=== PATIENT | female | born 1995 | race Caucasian/White ===

== ENCOUNTER 2022-06-13 13:35 | Emergency (ER) | payer OTHER ==
[~2022-06-13] VITALS: Ht 170.2 cm; Wt 86.2 kg
[2022-06-13] MEDS ORDERED: VENLAFAXINE H37.5 M1 PO (14:43)
[2022-06-13] MEDS ORDERED: CIPROFLOXACIN500 MG PO (14:43)
[2022-06-13] MEDS ORDERED: VALTREX500 MG PO (14:44)
[2022-06-13] MEDS ORDERED: CONCERTA18 MG PO (14:44)
== END 2022-06-13 17:43 | disposition home or self-care (01) ==
LOC: ED 13:35
DX: R31.9 Hematuria, unspecified (principal); Z79.899 Other long term (current) drug therapy
CPT/HCPCS: 36415; 80053; 81001; 83605; 84703; 85025; 99284; J7030

== ENCOUNTER 2023-02-28 18:01 | Emergency (ER) | payer OTHER ==
[~2023-02-28] VITALS: Ht 170.2 cm; Wt 90.9 kg
--- OUTSIDE RECORDS SUMMARY | ~2023-02-28 | XMS | Continuity of Care Document ---
Demographics + + + | Address | [address] | | | [place] [address] | + + + | Preferred Language | Unknown | + + + | Marital Status | Never | + + + | Church Affiliation | Unknown | + + + | Race | White | + + + | Ethnic Group | Not or | + + + Author + + + | Author | [facility] | + + + | Organization | [facility] | + + + | Address | [address] | | | [place] [address] | + + + | Phone | | + + + Care Team Providers + + + + | Care Long Winder Tender Name | Role | Phone | + + + + Unavailable | Unavailable | + + + + Unavailable | Unavailable | + + + + Allergies No information. Encounters No information. Functional Status No information. Immunizations No information. Medications + + + + | date | description | facility | + + + + | 2022-06-13 00:00 | VALACYCLOVIR HCL | [facility] | + + + + | 2022-06-13 00:00 | METHYLPHENIDATE HCL | [facility] | + + + + | 2022-06-13 00:00 | CIPROFLOXACIN HCL | [facility] | + + + + | 2022-06-13 00:00 | VENLAFAXINE HCL | [facility] | + + + + Problems + + + + | date | description | facility | + + + + | 2022-06-13 00:00 | Hematuria | [facility] | + + + + Procedures No information. Results/Labs +--------+--------+ +---------+--------+---------+ | test | date | facility | value | unit | notes | +--------+--------+ +---------+--------+---------+ + + | Result panel 1 | + + + + + + + + + | | 2022-06-13 | [facility] | YELLOW | (missing) | (missing) | | (unavailable | [facility] | | | + + + + + + + + + | Result panel 2 | + + + + + +---------+ + + | | 2022-06-13 | [facility] | CLEAR | (missing) | (missing) | | (unavailable | [facility]21:08 [facility] | | | | + + + +---------+ + + + + | Result panel 3 | + + + + + + + + + | | 2022-06-13 | [facility] | NEGATIVE | (missing) | (missing) | | (unavailable | [facility]:08 [facility] | | | | + + + + + + + + + | Result panel 4 | + + + + + + + + + | | 2022-06-13 | [facility] | NEGATIVE | (missing) | (missing) | | (unavailable | 14::08 [facility] | | | | + + + + + + + + + | Result panel 5 | + + + + + + + + + | | 2022-06-13 | [facility] | NEGATIVE | (missing) | (missing) | | (unavailable | [facility]21:08 [facility] | | | + + + + + + + + + | Result panel 6 | + + + + + +---------+ + + | | 2022-06-13 | [facility] | 1.025 | (missing) | (missing) | | (unavailable | [facility]21:08 [facility] | | | | + + + +---------+ + + + + | Result panel 7 | + + + + + +---------+ + + | | 2022-06-13 | [facility] | LARGE | (missing) | (missing) | | (unavailable | [facility]:08 [facility] | | | | + + + +---------+ + + + + | Result panel 8 | + + + + + +-------+ + + | | 2022-06-13 | [facility] | 7.5 | (missing) | (missing) | | (unavailable | [facility]21:08 [facility] | | | + + + +-------+ + + + + | Result panel 9 | + + + + + + + + + | | 2022-06-13 | [facility] | NEGATIVE | (missing) | (missing) | | (unavailable | [facility]21:08 [facility] | | | + + + + + + + + + | Result panel 10 | + + + + + +-------+ + + | | 2022-06-13 | [facility] | 1.0 | (missing) | (missing) | | (unavailable | [facility]21:08 [facility] | | | | + + + +-------+ + + + + | Result panel 11 | + + + + + + + + + | | 2022-06-13 | [facility] | NEGATIVE | (missing) | (missing) | | (unavailable | [facility]21:08 [facility] | | | + + + + + + + + + | Result panel 12 | + + + + + +---------+ + + | | 2022-06-13 | [facility] | TRACE | (missing) | (missing) | | (unavailable | [facility]21:08 [facility] | | | | + + + +---------+ + + + + | Result panel 13 | + + + + + +---------+ + + | | 2022-06-13 | [facility] | 21-40 | (missing) | (missing) | | (unavailable | [facility]21:08 [facility] | | | | + + + +---------+ + + + + | Result panel 14 | + + + + + +-------+ + + | | 2022-06-13 | [facility] | 2-3 | (missing) | (missing) | | (unavailable | [facility]21:08 [facility] | | | | + + + +-------+ + + + + | Result panel 15 | + + + + + + + + + | | 2022-06-13 | [facility] | SQUAMOUS 3+ | (missing) | (missing) | | (unavailable | [facility]21:08 [facility] | | | + + + + + + + + + | Result panel 16 | + + + + + +--------+ + + | | 2022-06-13 | [facility] | RARE | (missing) | (missing) | | (unavailable | [facility]21:08 [facility] | | | + + + +--------+ + + + + | Result panel 17 | + + + + + +------+ + + | | 2022-06-13 | [facility] | No | (missing) | (missing) | | (unavailable | [facility]21:08 [facility] | | | + + + +------+ + + + + | Result panel 18 | + + + + + + + + + | | 2022-06-13 | [facility] | CLEAN CATCH | (missing) | (missing) | | (unavailable | [facility]21:08 [facility] | | | + + + + + + + + + | Result panel 19 | + + + + + + + + + | | 2022-06-13 | [facility] | NEGATIVE | (missing) | (missing) | | (unavailable | 14[facility]30:08 [facility] | | | + + + + + + + + + | Result panel 20 | + + + + + +--------+ + + | | 2022-06-13 | [facility] | 11.9 | (missing) | (missing) | | (unavailable | [facility]15:08 [facility] | | | + + + +--------+ + + + + | Result panel 21 | + + + + + +--------+ + + | | 2022-06-13 | [facility] | 79.6 | (missing) | (missing) | | (unavailable | [facility]15:08 [facility] | | | + + + +--------+ + + + + | Result panel 22 | + + + + + +--------+ + + | | 2022-06-13 | [facility] | 14.7 | (missing) | (missing) | | (unavailable | [facility]:08 [facility] | | | + + + +--------+ + + + + | Result panel 23 | + + + + + +-------+ + + | | 2022-06-13 | [facility] | 4.4 | (missing) | (missing) | | (unavailable | [facility]08 [facility] | | | + + + +-------+ + + + + | Result panel 24 | + + + + + +-------+ + + | | 2022-06-13 | [facility] | 0.9 | (missing) | (missing) | | (unavailable | [facility]08 [facility] | | | + + + +-------+ + + + + | Result panel 25 | + + + + + +-------+ + + | | 2022-06-13 | [facility] | 0.4 | (missing) | (missing) | | (unavailable | [facility]:08 [facility] | | | + + + +-------+ + + + + | Result panel 26 | + + + + + +--------+ + + | | 2022-06-13 | [facility] | 4.79 | (missing) | (missing) | | (unavailable | [facility]08 [facility] | | | + + + +--------+ + + + + | Result panel 27 | + + + + + +--------+ + + | | 2022-06-13 | [facility] | 13.8 | (missing) | (missing) | | (unavailable | [facility]:08 [facility] | | | + + + +--------+ + + + + | Result panel 28 | + + + + + +-------+---------+ + | | 2022-06-13 | [facility] | 101 | mg/dL | (missing) | | (unavailable | [facility]15:08 [facility] | | | + + + +-------+---------+ + + + | Result panel 29 | + + + + + +-----+---------+ + | | 2022-06-13 | [facility] | 5 | mg/dL | (missing) | | (unavailable | [facility]15:08 [facility] | | | + + + +-----+---------+ + + + | Result panel 30 | + + + + + +--------+---------+ + | | 2022-06-13 | [facility] | 0.83 | mg/dL | (missing) | | (unavailable | [facility]:08 [facility] | | | + + + +--------+---------+ + + + | Result panel 31 | + + + + + +-------+ + + | | 2022-06-13 | [facility] | 100 | (missing) | (missing) | | (unavailable | [facility]08 [facility] | | | + + + +-------+ + + + + | Result panel 32 | + + + + + +--------+ + + | | 2022-06-13 | [facility] | 6.02 | (missing) | (missing) | | (unavailable | [facility] | | | + + + +--------+ + + + + | Result panel 33 | + + + + + +-------+ + + | | 2022-06-13 | [facility] | 138 | (missing) | (missing) | | (unavailable | [facility]:08 [facility] | | | + + + +-------+ + + + + | Result panel 34 | + + + + + +-------+ + + | | 2022-06-13 | [facility] | 4.2 | (missing) | (missing) | | (unavailable | [facility]08 [facility] | | | + + + +-------+ + + + + | Result panel 35 | + + + + + +--------+ + + | | 2022-06-13 | [facility] | 42.6 | (missing) | (missing) | | (unavailable | [facility]15:08 [facility] | | | + + + +--------+ + + + + | Result panel 36 | + + + + + +-------+ + + | | 2022-06-13 | [facility] | 104 | (missing) | (missing) | | (unavailable | [facility]:08 [facility] | | | + + + +-------+ + + + + | Result panel 37 | + + + + + +------+ + + | | 2022-06-13 | [facility] | 25 | (missing) | (missing) | | (unavailable | [facility]08 [facility] | | | + + + +------+ + + + + | Result panel 38 | + + + + + +--------+ + + | | 2022-06-13 | [facility] | 13.2 | (missing) | (missing) | | (unavailable | [facility]08 [facility] | | | + + + +--------+ + + + + | Result panel 39 | + + + + + +-------+---------+ + | | 2022-06-13 | [facility] | 9.1 | mg/dL | (missing) | | (unavailable | [facility]:08 [facility] | | | + + + +-------+---------+ + + + | Result panel 40 | + + + + + +-------+ + + | | 2022-06-13 | [facility] | 7.6 | (missing) | (missing) | | (unavailable | [facility] | | | + + + +-------+ + + + + | Result panel 41 | + + + + + +-------+ + + | | 2022-06-13 | [facility] | 3.9 | (missing) | (missing) | | (unavailable | [facility] | | | + + + +-------+ + + + + | Result panel 42 | + + + + + +-------+ + + | | 2022-06-13 | [facility] | 3.7 | (missing) | (missing) | | (unavailable | [facility]08 [facility] | | | + + + +-------+ + + + + | Result panel 43 | + + + + + +--------+ + + | | 2022-06-13 | [facility] | 1.05 | (missing) | (missing) | | (unavailable | [facility]:08 [facility] | | | + + + +--------+ + + + + | Result panel 44 | + + + + + +-------+ + + | | 2022-06-13 | [facility] | 0.4 | (missing) | (missing) | | (unavailable | [facility] | | | + + + +-------+ + + + + | Result panel 45 | + + + + + +------+ + + | | 2022-06-13 | [facility] | 20 | (missing) | (missing) | | (unavailable | [facility]08 [facility] | | | + + + +------+ + + + + | Result panel 46 | + + + + + +--------+ + + | | 2022-06-13 | [facility] | 89.0 | (missing) | (missing) | | (unavailable | [facility] | | | + + + +--------+ + + + + | Result panel 47 | + + + + + +------+ + + | | 2022-06-13 | [facility] | 37 | (missing) | (missing) | | (unavailable | [facility] | | | + + + +------+ + + + + | Result panel 48 | + + + + + +------+ + + | | 2022-06-13 | [facility] | 84 | (missing) | (missing) | | (unavailable | [facility]:08 [facility] | | | + + + +------+ + + + + | Result panel 49 | + + + + + +-------+ + + | | 2022-06-13 | [facility] | 1.3 | (missing) | (missing) | | (unavailable | [facility] | | | + + + +-------+ + + + + | Result panel 50 | + + + + + +--------+ + + | | 2022-06-13 | [facility] | 28.8 | (missing) | (missing) | | (unavailable | [facility] | | | + + + +--------+ + + + + | Result panel 51 | + + + + + +--------+ + + | | 2022-06-13 | [facility] | 32.3 | (missing) | (missing) | | (unavailable | [facility]08 [facility] | | | + + + +--------+ + + + + | Result panel 52 | + + + + + +--------+ + + | | 2022-06-13 | [facility] | 13.3 | (missing) | (missing) | | (unavailable | [facility] | | | + + + +--------+ + + + + | Result panel 53 | + + + + + +-------+ + + | | 2022-06-13 | [facility] | 370 | (missing) | (missing) | | (unavailable | [facility]08 [facility] | | | + + + +-------+ + + Social History + + + + | date | description | facility | + + + + | 2022-06-13 00:00 | Unknown if ever smoked | [facility] | + + + + Vital Signs + + + +---------+ | date | measurement | value | units | + + + +---------+ | 2022-06-13 00:00 | BMI | 29.8 | kg/m2 | + + + +---------+ | 2022-06-13 00:00 | BP_diastolic | 77 | mmHg | + + + +---------+ | 2022-06-13 00:00 | BP_systolic | 111 | mmHg | + + + +---------+ | 2022-06-13 00:00 | heart_rate | 95 | /min | + + + +---------+ | 2022-06-13 00:00 | height_metric | 170.18 | cm | + + + +---------+ | 2022-06-13 00:00 | height_standard | 67 | in | + + + +---------+ | 2022-06-13 00:00 | o2_saturation | 99 | % | + + + +---------+ | 2022-06-13 00:00 | respiration_rate | 16 | /min | + + + +---------+ | 2022-06-13 00:00 | temperature_metric | 36.83 | C | | | | | | + + + +---------+ | 2022-06-13 00:00 | | 98.3 | F | | | temperature_standar | | | | | d | | | + + + +---------+ | 2022-06-13 00:00 | weight_metric | 86.18 | kg | + + + +---------+ | 2022-06-13 00:00 | weight_standard | 189.99 | lb | + + + +---------+ | 2022-06-13 00:00 | weight_standard | 190 | lb | + + + +---------+"
--- OUTSIDE RECORDS SUMMARY | ~2023-02-28 | XMS | Continuity of Care Document ---
Demographics + + + | Address | [address] | | | [place] [address] | + + + | Preferred Language | Unknown | + + + | Marital Status | Never | + + + | Gnosticist Affiliation | Unknown | + + + | Race | White | + + + | Ethnic Group | Not or | + + + Author + + + | Author | Page | + + + | Organization | Page | + + + | Address | [address] | | | [place] [address] | + + + | Phone | | + + + Care Team Providers + + + + | Care Light Armored Vehicle Officer Name | Role | Phone | + + + + Unavailable | Unavailable | + + + + Unavailable | Unavailable | + + + + Allergies No information. Encounters No information. Functional Status No information. Immunizations No information. Medications + + + + | date | description | facility | + + + + | 2022-06-13 00:00 | VALACYCLOVIR HCL | [facility] | + + + + | 2022-06-13 00:00 | METHYLPHENIDATE HCL | [facility] | + + + + | 2022-06-13 00:00 | CIPROFLOXACIN HCL | [facility] | + + + + | 2022-06-13 00:00 | VENLAFAXINE HCL | [facility] | + + + + Problems + + + + | date | description | facility | + + + + | 2022-06-13 00:00 | Hematuria | [facility] | + + + + Procedures No [...] | Unknown if ever smoked | [facility] | + + + + Vital Signs [...]
[~2023-02-28 18:01] MED LIST: CIPROFLOXACIN500 MG PO; CONCERTA18 MG PO; VALTREX500 MG PO; VENLAFAXINE H37.5 M1 PO
[2023-02-28] MEDS ORDERED: ATOMOXETINE HCL80 MG PO (18:41)
[2023-02-28 18:45] LABS: BASOPHILS 0.7 % (0-2); EOSINOPHILS 1.8 % (0-6); HEMATOCRIT 40.2 % (35.0-50.0); HEMOGLOBIN 13.3 g/dL (12.0-18.0); LYMPHOCYTES 19.4 % (24-44); MCH 29.7 (27-36); MCHC 32.9 g/dl (30-36); MCV 90.1 fl (81-99); MONOCYTES 7.3 % (0-12); NEUTROPHILS 70.8 % (39-80); PLATELET COUNT 364 K/uL (140-440); RBC 4.47 M/ul (4.3-5.7); RDW 13.9 (10.5-15.0)
[2023-02-28 19:00] LABS: ALBUMIN 3.9 g/dL (3.4-5.0); ALBUMIN/GLOBULIN RATIO 1.03 (1.1-2.4); ANION GAP 14.8 (7-21); BILIRUBIN, TOTAL 0.2 ng/dL (0.2-1.0); BUN/CREATININE RATIO 8.98 (6.0-28.6); CALCIUM 9.2 mg/dL (8.5-10.1); CREATININE, SERUM 0.89 mg/dL (0.55-1.02); MAGNESIUM 1.7 mg/dL (1.8-2.4); POTASSIUM 3.8 mmol/L (3.5-5.1); PROTEIN, TOTAL 7.7 g/dL (6.4-8.2)
[2023-02-28 19:31] LABS: BILIRUBIN, URINE NEGATIVE (negative); BLOOD/HGB, URINE NEGATIVE (Negative); KETONE, URINE NEGATIVE (Negative); LEUK ESTERASE, URINE NEGATIVE (negative); NITRITE, URINE NEGATIVE (negative)
[2023-02-28] MEDS ORDERED: ONDANSETRON ODT8 MG PO (20:53)
[2023-02-28] MEDS ORDERED: HYDROCODON-ACE1 EA10 PO (20:53)
[2023-02-28 21:40] VITALS: BP 105/78
== END 2023-02-28 21:40 | disposition home or self-care (01) ==
LOC: ED 18:01
PROVIDERS: Emergency Medicine
DX: K80.70 Calculus of gallbladder and bile duct without cholecystitis without obstruction (principal)
CPT/HCPCS: 36415; 76705; 80053; 81003; 83690; 83735; 84703; 85025; 96361; 96374; 96375; 99284-25; J1885; J2405; J7030

== ENCOUNTER 2024-12-20 17:16 | Emergency (ER) | payer OTHER ==
[~2024-12-20] VITALS: Ht 170.2 cm; Wt 98.6 kg
[~2024-12-20 17:16] MED LIST changes: +ATOMOXETINE HCL80 MG PO; +HYDROCODON-ACE1 EA10 PO; +ONDANSETRON ODT8 MG PO
[2024-12-20] MEDS ORDERED: METHYLPHENIDATE36 MG PO (19:24)
[2024-12-20] MEDS ORDERED: ALBUTEROL0.63 MG/3 INH (19:25)
[2024-12-20] MEDS ORDERED: TRAMADOL HCL50 MG PO (20:40)
[2024-12-20] MEDS ORDERED: TRAMADOL HCL 50 MG HOME.PACK PO ONE (20:45)
[2024-12-20 20:58] VITALS: BP 123/82
== END 2024-12-20 20:58 | disposition home or self-care (01) ==
LOC: ED 17:16
DX: S46.912A Strain of unspecified muscle, fascia and tendon at shoulder and upper arm level, left arm, initial encounter (principal); S80.01XA Contusion of right knee, initial encounter; Z79.899 Other long term (current) drug therapy; V03.00XA Pedestrian on foot injured in collision with car, pick-up truck or van in nontraffic accident, initial encounter
CPT/HCPCS: 73060; 73560; A9270

== ENCOUNTER 2025-04-04 04:08 | Observation (INO) | payer OTHER ==
[~2025-04-04] VITALS: Ht 170.2 cm; Wt 98.1 kg
[2025-04-04] VITALS (12 sets, daily range): BP systolic 99–135; BP diastolic 58–90
[~2025-04-04 04:08] MED LIST changes: +ALBUTEROL0.63 MG/3 INH; +METHYLPHENIDATE36 MG PO; +TRAMADOL HCL50 MG PO; -VENLAFAXINE H37.5 M1 PO; +VENLAFAXINE HCL75 M1 PO
[2025-04-04 04:37] LABS: BASOPHILS 0.6 % (0.1-1.2); EOSINOPHILS 1.6 % (0.7-5.8); LYMPHOCYTES 39.0 % (19.3-51.7); MCH 28.9 PG (25.6-32.2); MCHC 33.6 g/dL (32.2-35.5); MCV 86.2 fL (79.4-94.8); MONOCYTES 7.8 % (4.7-12.5); NEUTROPHILS 50.7 % (34.0-71.1); RBC 4.91 M/uL (3.93-5.22)
[2025-04-04] MEDS ORDERED: HYDROmorphone HCL 1 MG/ML SYR IV PRN ×3 (04:45→11:30)
[2025-04-04] MEDS ORDERED: SODIUM CHLORIDE 0.9% 1,000 ML IV SCH (04:45)
[2025-04-04 04:48] LABS: ALT (SGPT) 24.0 U/L (14-59); AST (SGOT) 15.0 U/L (15-37); GLOMERULAR FILTRATION RATE,EST 99.0 mL/min (>60); PROTEIN, TOTAL 7.6 g/dL (6.4-8.2); UREA NITROGEN 10.0 mg/dL (7-18)
[2025-04-04] MEDS ORDERED: FAMOTIDINE 20 MG/ 2 ML VIAL IV ONE (05:45)
[2025-04-04] MEDS ORDERED: CEFAZOLIN SODIUM 2 GM in SODIUM CHLORIDE 0.9% 100 ML IV ONE (05:45)
--- NOTE | 2025-04-04 06:50 | NUR ---
RECEIVED REPORT FROM LUCIUS BARAJAS RN. PT ADMITTED TO ROOM 112 VIA GURNEY. PT ABLE TO AMBULATE TO HOSPITAL BED IND. PT REPORTS SOME NAUSEA AND EPIGASTRIC PAIN 7-01/19. PT MEDICATED W/ PRN IV DILAUDID. PT IS NPO. ORAL SWABS AND CHAPSTICK PROVIDED FOR COMFORT. CALL LIGHT WITHIN REACH.
[2025-04-04] MEDS ORDERED: LACTATED RINGER'S 1,000 ML IV SCH ×2 (07:00→11:30)
--- NOTE | 2025-04-04 07:46 | NUR ---
got pt ua sample, dated, timed and initialed it and sent to lab, 1839.
[2025-04-04 07:47] LABS: BLOOD/HGB, URINE NEGATIVE (Negative); KETONE, URINE TRACE (Negative); LEUK ESTERASE, URINE NEGATIVE (negative); NITRITE, URINE NEGATIVE (negative)
--- NOTE | 2025-04-04 07:54 | NUR ---
VERBAL REPORT RECIEVED BY FABIOLA COOK. URINE COLLECTED BY HOLLIE CORTES. PATIENT COMPLAINS OF NAUSEA AT THIS TIME, PRN ZOFRAN GIVEN (SEE EMAR). IVF RUNNING AT THIS TIME. PATIENT COMPLAINS OF 7/10 MID ABD PAIN.
--- NOTE | 2025-04-04 09:04 | NUR ---
Patient crying, she reports 9/10 abdominal pain. Admin dilaudid 0.6mg iv at this time. Encouraged patient to rest.
--- NOTE | 2025-04-04 09:57 | NUR ---
INTO SEE PATIENT. PERSONAL HEALTH INFORMATION REVIEWED. PATIENT LIVES IN A BASEMENT APARTMENT BELOW PARENTS. STEPS INTO THE APT. DENIES DIFFCULTY DOING THEM. PATIENT DOES NOT USE DME. DRIVES. MOTHER TO DRIVE HER HOME WHEN MEDICALLY CLEARED FOR D/C. DID TALK TO HER ABOUT SNAP BENEFITS AND REACHING OUT TO [facility] FOR ELECTRICAL AND FOOD ASSISTANCE. NO QUESTIONS AT THIS TIME.
--- NOTE | 2025-04-04 10:54 | NUR ---
Patient reports 7/10 abd pain. Admin dilaudid 0.6mg iv at this time.
[2025-04-04] MEDS ORDERED: ADDERALL 10 MG10 MG PO (11:04)
--- NOTE | 2025-04-04 11:05 | NUR ---
medications reconciled with patient
[2025-04-04] MEDS ORDERED: FAMOTIDINE 20 MG/ 2 ML VIAL IV SCH (11:24)
[2025-04-04] MEDS ORDERED: KETOROLAC TROMETHAMINE 30 MG/ML VIAL IV PRN (11:30)
--- NOTE | 2025-04-04 11:32 | NUR ---
PATIENT RESTING IN BED AWAKE ALERT AND ORIENTED. PATIENT UPDATED REGARDING POC, PLAN SCHEDULE SURGERY THIS AFTERNOON. CALL LIGHT IN REACH.
[2025-04-04] MEDS ORDERED: ROCURONIUM BROMIDE 50 MG/5 ML SYR ONE ×2 (12:16→17:14)
[2025-04-04] MEDS ORDERED: LIDOCAINE HCL 2% 5 ML SDV ONE (12:16)
[2025-04-04] MEDS ORDERED: LIDOCAINE HCL 1% 30 ML SDV ONE (12:16)
[2025-04-04] MEDS ORDERED: SEVOFLURANE 250 ML BTL INH ONE (12:20)
--- NOTE | 2025-04-04 12:26 | NUR ---
PATIENT COMPLAINS OF 7/10 MID ABD PAIN, PRN PAIN MEDICATION GIVEN (SEE EMAR). PATIENT DENIES ANY NEEDS AT THIS TIME. CALL LIGHT IN REACH.
[2025-04-04] MEDS ORDERED: MIDAZOLAM HCL 2 MG/2 ML VIAL ONE (13:30)
[2025-04-04] MEDS ORDERED: fentaNYL citrate 100 MCG/2 ML VIAL ONE ×2 (13:31→16:45)
--- NOTE | 2025-04-04 13:40 | NUR ---
PATIENT RATES MID ABD PAIN A 2/10 AT THIS TIME. PATIENT STATES "I AM VERY HAPPY WITH MY PAIN BEING A 2/10." PATIENT DENIES ANY NEEDS AT THIS TIME. CALL LIGHT IN REACH.
[2025-04-04] MEDS ORDERED: CEFAZOLIN SODIUM 2 GM in SODIUM CHLORIDE 0.9% 100 ML IV SCH ×2 (14:00)
--- NOTE | 2025-04-04 15:28 | NUR ---
Patient left unit with surgery nurse.
[2025-04-04] MEDS ORDERED: BUPIVACAINE HCL 0.25% 50 ML MDV ONE (15:42)
[2025-04-04] MEDS ORDERED: SODIUM CHLORIDE 0.9% 60 ML IV ONE (15:43)
[2025-04-04] MEDS ORDERED: NALOXONE HCL 0.4 MG SYR IV PRN (16:00)
[2025-04-04] MEDS ORDERED: fentaNYL citrate 50 MCG/ML SDV IV PRN (16:00)
[2025-04-04] MEDS ORDERED: IBLOOD GLUCOSE TEST STRIP 1 EA TEST VI PRN (16:00)
--- NOTE | 2025-04-04 16:11 | NUR ---
UR CLINICAL REVIEW: [facility] REVIEW MEETS OBS FOR CHOLECYSTITIS WITH NEED FOR PAIN MANAGEMENT. [employer] OBS 04/04/25 @ 0544 ORDER MATCHES REG NO AUTH REQUIRED FOR OBS STAY PER GUIDELINES PROCEDURE COMPLETE. EXPECTED DC 04/05/25 04/05/25
[2025-04-04] MEDS ORDERED: SUGAMMADEX SODIUM 200 MG/2 ML ML ONE (16:28)
[2025-04-04] MEDS ORDERED: DEXAMETHASONE SOD PHOS 4 MG/ML VIAL ONE (16:28)
[2025-04-04] MEDS ORDERED: KETOROLAC TROMETHAMINE 30 MG/ML VIAL ONE (16:28)
--- NOTE | 2025-04-04 18:09 | NUR ---
04/04/251808 Lory Bennett 180: PT ARRIVES TO PACU AWAKE. REPORT RECEIVED FROM WHALE FISHERMAN AND THEATRE ARTS PROFESSOR. SHE IS ASKING QUESTIONS. SHE IS GIVEN EXTRA WARM BLANKETS.
[2025-04-04] MEDS ORDERED: TYLENOL EXTRA500 MG PO (18:22)
[2025-04-04] MEDS ORDERED: PERCOCET 7.5-31 EACH PO (18:23)
[2025-04-04] MEDS ORDERED: MOTRIN IB200 MG PO (18:24)
--- NOTE | 2025-04-04 18:26 | HP ---
[facility] [address], [place] [address] Signed ADMISSION DATE: 04/04/2025 REASON FOR ADMISSION: Acute calculous cholecystitis. HISTORY OF PRESENT ILLNESS: This 29-year-old woman presented to the emergency room late last night and early in the morning was evaluated by Dr. Hayley De Paz at approximately 4:30. She had been awakened at approximately 1:30 a.m. with severe epigastric pain. She has had similar symptoms in the past and indeed two years ago was identified as having gallstones. This was at [facility] apparently. She was never offered cholecystectomy from my understanding. Evaluation in the emergency room by Dr. De Paz included lab studies, which showed a white count slightly elevated at 11.15. Normal electrolytes overall. Normal liver enzymes with bilirubin of 0.1 and alkaline phosphatase of 91. An ultrasound showing gallstones and some gallbladder wall thickening with a positive sonographic Lainez sign. She is admitted for further evaluation and care. Since admission, she has somewhat improved, but still has right subcostal pain. PAST MEDICAL HISTORY: 1. Notable for a dermoid cyst excision by laparoscopic approach in the past as well as wisdom tooth extraction. 2. She rarely uses alcohol and uses THC "sometimes.". 3. Other medical issues include ADHD. 4. Depression. 5. Anxiety. 6. Herpes. SOCIAL HISTORY: She is not . She lives in [place]. Her mother is planning to come see her reasonably soon. She works for a local firm, [employer]. MEDICATIONS: Medicines at admission included; 1. Zofran. 2. Tramadol. 3. Hydrocodone. REVIEW OF SYSTEMS: She denies any shortness of breath or chest pain. Her pain is mostly in the epigastric and right subcostal area. She has no nausea or vomiting. No blood per rectum or hematemesis. Electronically Signed By: BRITT PIERRE MD 04/04/25 1826 PATIENT NAME: PRAMOD RDZ HISTORY AND PHYSICAL DATE OF : [birth year] REPORT #: [id number] PHYSICIAN: BRITT PIERRE MD PCP: SVETA ALLEN REPORT IS CONFIDENTIAL AND NOT TO BE RELEASED WITHOUT AUTHORIZATION [facility] [address], [place] [address] Signed PHYSICAL EXAMINATION: GENERAL: Pleasant white woman who looks to be somewhat anxious. VITAL SIGNS: Height is 5 feet 7 inches, weight is 98 kg, BMI 33.9. HEENT: Trachea is midline. Mucous membranes reasonably moist. CHEST: Clear. HEART: Regular without murmur. ABDOMEN: Nondistended. There is mild tenderness in epigastric and right subcostal area. There is no ascites. No palpable mass. EXTREMITIES: Show no clubbing, cyanosis, or edema. LABORATORY STUDIES: Shows white count of 11.15, hematocrit 42.3, platelets 379,000. Chem profile normal except for potassium slightly low at 3.4. Liver enzymes are normal. Lipase normal at 39. Beta HCG negative. Urinalysis normal. ASSESSMENT: The patient has acute calculous cholecystitis. I have reviewed her ultrasound and of course, have performed clinical exam. I discussed the pathophysiology of problem with her in detail using a white board with illustrations. I would recommend cholecystectomy be undertaken for symptomatic acute calculous cholecystitis. The risk of bleeding, infection, bile duct injury, need for open procedure, need for common duct exploration and need for other indicated procedures was reviewed in detail. She understands and wished to proceed. PLAN: We will continue with IV fluid administration, IV antibiotics and plan for operative intervention today at some point. She will remain n.p.o. for the time being. MD FITO Engle/ARELYL /[id number] cc: Merlyn De Paz MD Electronically Signed By: BRITT PIERRE MD 04/04/25 1826 PATIENT NAME: PRAMOD RDZ HISTORY AND PHYSICAL DATE OF : [birth year] REPORT #: [id number] PHYSICIAN: BRITT PIERRE MD PCP: SVETA ALLEN REPORT IS CONFIDENTIAL AND NOT TO BE RELEASED WITHOUT AUTHORIZATION [facility] [address] [place] [id number] Signed Copies: MERLYN DE PAZ MD ~ Electronically Signed By: BRITT PIERRE MD 04/04/25 1826 PATIENT NAME: PRAMOD RDZ HISTORY AND PHYSICAL DATE OF : [birth year] REPORT #: [id number] PHYSICIAN: BRITT PIERRE MD PCP: SVETA ALLEN REPORT IS CONFIDENTIAL AND NOT TO BE RELEASED WITHOUT AUTHORIZATION
[2025-04-04] MEDS ORDERED: IBUPROFEN 600 MG TAB PO PRN (18:30)
[2025-04-04] MEDS ORDERED: OXYCODONE/APAP 7.5/325 TAB PO PRN (18:30)
[2025-04-04] MEDS ORDERED: ACETAMINOPHEN 500 MG TAB PO PRN (18:30)
--- NOTE | 2025-04-04 19:00 | NUR ---
Patient back to the medical floor. Patient is alert and oriented x3, no acute distress. Patient up to restroom to void, 300ml clear yellow urine noted. Patient back to bed, vital signs stable. SP02 97% on room air, respirations non labored. x4 abdominal lap sites noted, closed-intact steri strips, scant serosang drainage noted. Patient reports 5/10 abd pain and nausea. Admin dilaudid 0.5mg iv and zofran 4mg iv admin at this time. CPOX intact. IV fluids infusing per order. Bed alarm intact.
--- NOTE | 2025-04-04 19:36 | NUR ---
RECEIVED REPORT FROM FABIOLA PINO. PT RESTING IN BED, DENIES NEEDS OR CONCERNS AT THIS TIME. CALL LIGHT WITHIN REACH.
--- NOTE | 2025-04-04 21:30 | NUR ---
PT RESTING IN BED. REPORTS RIGHT ABD PAIN 5/10 AT REST AND 7/10 W/ DEEP BREATHS. PT REQUESTED IV PAIN MED AT THIS TIME, MEDICATED W/ PRN IV DILAUDID. CPOX IN PLACE, RA. LSC, USING ABD SPLINTING FOR DB & C. HRR. BTA, ABD OBESE. ABD TENDER TO RIGHT SIDE. DENIES FLATUS. TOLERATING APPLE JUICE AND CRACKERS. LAC IV INFUSING LR & ATB PER EMAR. 4 LAP SITES TO ABD W/ STERI STRIPS AND SMALL AMT BLOODY DRNG. LAP SITES CLEANSED AND LARGE BANDAIDS PLACED OVER STERI STRIPS FOR DRNG. SCD'S IN PLACE. CALL LIGHT WITHIN REACH.
--- NOTE | 2025-04-04 21:57 | NUR ---
PT SBA TO BATHROOM. PT VOIDED AND ASSISTED BACK TO BED. PT STATED THAT SHE HAD SOME DRAINAGE FROM ONE OF HER SURGERY CITES. RN NOTIFIED. PT STATES NO FURTHER NEEDS AT THIS TIME. CALL LIGHT WITHIN REACH.
--- NOTE | 2025-04-04 22:00 | NUR ---
1 BANDAID CHANGED TO ABD R/T INCREASED BLOODY DRNG AFTER AMBULATING TO BR.
--- NOTE | 2025-04-04 22:30 | NUR ---
LAST SET OF POST-OP VS DONE. PT REQUESTED PO PAIN MED, PRN PERCOCET ADMINISTERED PER EMAR. PT ALSO GIVEN CHICKEN BROTH AND CRACKERS. CALL LIGHT WITHIN REACH.
[2025-04-05] VITALS (7 sets, daily range): BP systolic 91–120; BP diastolic 46–62
--- NOTE | 2025-04-05 00:45 | NUR ---
PT ASLEEP, APPEARS COMFORTABLE. IVF INFUSING. CALL LIGHT WITHIN REACH.
--- NOTE | 2025-04-05 02:04 | NUR ---
used call light, Up to BRP, voiding QS yellow uriine, back to bed. On room air, IVf infusing w/o problems. scds back on. Repositions self in bed. c/o abd pain. Primary RN notified
--- NOTE | 2025-04-05 02:18 | NUR ---
PT REPORTS RIGHT ABD PAIN, REQUESTING IV PAIN MED. PRN TORADOL ADMINISTERED PER EMAR. PT ENC TO CONT DB & C W/ ABD SPLINTING PER REPORT OF INCREASED PAIN W/ DEEP BREATHS.
--- NOTE | 2025-04-05 03:51 | NUR ---
CALL LIGHT ANSWERED. PT NEEDED TO USE BATHROOM. CARDER BLANKETS SBA TO BATHROOM. PT VOIDED AND ASSISTED BACK TO BED. PT STATES NO FURTHER NEEDS AT THIS TIME. CALL LIGHT WITHIN REACH.
--- NOTE | 2025-04-05 05:38 | NUR ---
[facility] OBTAINED VITALS AND I&O. PT STATES NO NEEDS AT THIS TIME. RN NOTIFIED OF PT LOW B/P. MANUAL B/P TAKEN. RN IN ROOM.
--- NOTE | 2025-04-05 05:45 | NUR ---
PT AWAKE. LOW B/P THIS AM, PT DENIES ANY OTHER SYMPTOMS. WILL RECHECK B/P IN 1 HR. IV ATB INITIATED PER EMAR. 4 LAP SITES W/ BANDAIDS W/ SMALL AMT DRIED BLOODY DRNG. CALL LIGHT WITHIN REACH.
--- NOTE | 2025-04-05 07:44 | NUR ---
Patient awake, alert and oriented x3, no acute distress. Patient up to restroom to void then back to bed. Abdominal lap sites have small bandaids in place, notable dry serosang drainage. Patient reports she slept well. Pain is tolerable at this time, no reported nausea.
--- NOTE | 2025-04-05 08:33 | NUR ---
Patient reports 6/10 incisional pain. Admin two tabs norco 7.5/325mg at this time. Patient instructed to call staff shortly once pain medication starts working to take a walk, pt receptive.
--- NOTE | 2025-04-05 09:44 | NUR ---
I ASSISTED PATIENT WITH TWO LAPS AROUND THE NURSES STATIONS, ABOUT 300FT. PATIENT WALKED WELL WITH NO ISSUES. BACK TO ROOM, CALL LIGHT WITH IN REACH AND NOTHING ELSE NEEDED AT THIS TIME.
--- NOTE | 2025-04-05 11:43 | OR ---
[facility] [address], [place] [address] Signed DATE OF OPERATION: 04/04/2025 SURGEON: Britt Pierre MD PREOPERATIVE DIAGNOSIS: Acute calculous cholecystitis. POSTOPERATIVE DIAGNOSIS: Acute calculous cholecystitis. PROCEDURES: 1. Laparoscopic cholecystectomy with intraoperative cholangiogram. 2. Surgeon-directed fluoroscopy. ANESTHESIA: General endotracheal, Veena Anastasia, [employer] MACHINE OPERATOR and local 10 mL of 0.25% Marcaine with epinephrine. INDICATION: This 29-year-old woman is a patient of SATYA Vilchis. She two years ago was identified as having gallstones related to a biliary colic attack. For whatever reason, she did not proceed with cholecystectomy as would generally be the case. She presented early this morning to the emergency room where she was evaluated by Dr. De Paz with complaints of epigastric and right subcostal pain and local tenderness. Liver enzymes are normal. White count is slightly elevated at 11.9. She has been fluid resuscitated, given intravenous antibiotics, and not to undergo cholecystectomy preferred by laparoscopic approach. The risk of bleeding, infection, bile duct injury, need for open procedure, and failure to cure her symptoms was reviewed in detail. She understands and wished to proceed. FINDINGS: The gallbladder was acutely inflamed and somewhat thickened. It was partially intrahepatic. Cholecystectomy proceded without complication. She did require decompression of the gallbladderas the gallbladder was tensely distended. Normal bile was noted from the gallbladder itself. Cholangiogram was normal. Liver was normal. There was a minimal amount of oozing of blood in the region of the infundibulum, which was ultimately controlled with electrocautery and Rogelio hemostatic powder. DESCRIPTION OF PROCEDURE: Electronically Signed By: BRITT PIERRE MD 04/05/25 1143 PATIENT NAME: PRAMOD RDZ OPERATIVE REPORT DATE OF : [birth year] REPORT #: [id number] PHYSICIAN: BRITT PIERRE MD PCP: SVETA ALLEN REPORT IS CONFIDENTIAL AND NOT TO BE RELEASED WITHOUT AUTHORIZATION [facility] [address], [place] [address] Signed The patient was brought to the operating room and given a general endotracheal anesthetic. Preoperative antibiotic Ancef had been given. Sequential compression device stockings were used. The abdomen was prepared with a chlorhexidine solution and draped sterilely. An infraumbilical incision was made and using an open Colton cannula technique, pneumoperitoneum achieved to a level of 14 mmHg with carbon dioxide gas. Intra-abdominal inspection showed no sign of ascites or carcinomatosis. The gallbladder was tensely distended and inflamed and edematous. Three additional trocars were placed in usual configuration in the subxiphoid, right midclavicular, and right anterior axillary line. Attempts at grasping the gallbladder to elevate it was unsuccessful due to the tense nature of the gallbladder and on that basis, it was decompressed with a laparoscopic trocar device. The puncture site was grasped allowing for elevation of the gallbladder. Marked inflammation and edema was noted in the infundibulum with surrounding soft tissue. Meticulous care was taken to break down and dissect this area allowing for further elevation of the gallbladder. Ultimately, the infundibulum could be well identified and was retracted laterally. Using meticulous care with blunt electrocautery dissection, the triangle of Calot was dissected free identifying well the cystic duct. A clip was applied across gallbladder cystic duct junction and transverse choledochotomy was made in the cystic duct. Egress of clear bile was noted. With various manipulations, an Castillo type cholangiocatheter system was passed into the cystic duct allowing for cholangiography under surgeon directed fluoroscopy which showed free flow of contrast in biliary tree with prompt emptying into the duodenum. There was no sign of filling defect or biliary anomaly. Retrograde filling was noted as well. The cystic duct was then secured with three clips and the gallbladder then dissected free after transection of the cystic duct. A small amount of bleeding was noted in the infundibular area for which well position clips provided for good security as well as some amount of electrocautery. Gallbladder was dissected free more fully, placed in an endobag, and extracted through the infraumbilical port site without problem, noting 7 in total, roundish 1 to 2 cm gallstones. The mucosa of the gallbladder was chronically inflamed. No sign of neoplasm was noted. Irrigation was undertaken in subhepatic space. Excess irrigation fluid was suctioned free. Rogelio hemostatic agent was insufflated in the hepatic (gallbladder) bed in the lower aspect as well though there was no sign of active bleeding. Excess irrigation fluid was suctioned free. The trocars removed under direct visualization showing no sign of bleeding. Infraumbilical fascial incision was reapproximated with interrupted 0 Vicryl suture. Irrigation was undertaken. 10 mL of 0.25% Marcaine with epinephrine was injected locally. The skin was closed with interrupted 3-0 Vicryl and Steri-Strips were applied. The patient was ultimately extubated and transferred to the recovery room in good condition and suffered no complications. Sponge, needle, and instrument counts were reported as correct x3. Electronically Signed By: BRITT PIERRE MD 04/05/25 1143 PATIENT NAME: PRAMOD RDZ OPERATIVE REPORT DATE OF : [birth year] REPORT #: [id number] PHYSICIAN: BRITT PIERRE MD PCP: SVETA ALLEN REPORT IS CONFIDENTIAL AND NOT TO BE RELEASED WITHOUT AUTHORIZATION [address] [place], [place] [address] Signed MD FITO Engle/ARELYL /[id number] cc: MD Sveta Ye FNP Copies: MERLYN DE PAZ MD ~ Electronically Signed By: BRITT PIERRE MD 04/05/25 1143 PATIENT NAME: PRAMOD RDZ OPERATIVE REPORT DATE OF : [birth year] REPORT #: [id number] PHYSICIAN: BRITT PIERRE MD PCP: SVETA ALLEN REPORT IS CONFIDENTIAL AND NOT TO BE RELEASED WITHOUT AUTHORIZATION
== END 2025-04-05 10:51 | disposition home or self-care (01) ==
LOC: ED 04:08 → MS 04:10
PROVIDERS: Emergency Medicine; ADMIT Surgery; ATTEND Surgery
PROC: BF532Z0 Other Imaging of Gallbladder and Bile Ducts using Fluorescing Agent, Intraoperative (ICD-10-PCS; 2025-04-04)
PROC: 0FT44ZZ Resection of Gallbladder, Percutaneous Endoscopic Approach (ICD-10-PCS; principal; 2025-04-04 16:00)
DX: K80.12 Calculus of gallbladder with acute and chronic cholecystitis without obstruction (principal); F41.9 Anxiety disorder, unspecified; F32.A Depression, unspecified; Z79.899 Other long term (current) drug therapy
CPT/HCPCS: 00790; 36415; 74300; 76705; 80053; 81003; 83690; 84703; 85025; 94762; 96361; 96365; 96366; 96374; 96375; 96376; 99285-25; G0378; J0165; J0688; J1100; J1171; J1885; J2003; J2250; J2405; J2704; J3010; J3490; J7030; J7121; Q9967